=== PATIENT | male | born 1935 | race Caucasian/White ===

== ENCOUNTER 2020-02-27 10:50 | Outpatient (CLI) | payer OTHER ==
[~2020-02-27 10:50] MED LIST: CADUET 5 MG/401 TAB PO; COUMADIN2.5 MG PO; DIOVAN HCT 160-1 TAB PO; LANOXIN EL0.05 MG/ML PO
== END 2020-02-27 11:01 | disposition home or self-care (01) ==
LOC: RAD 10:50
PROVIDERS: ATTEND General Practice
DX: M54.89 Other dorsalgia (principal)

== ENCOUNTER 2020-04-07 10:10 | Outpatient (CLI) | payer OTHER | END 2020-04-07 10:20 | disposition home or self-care (01) | LOC: RAD 10:10 | DX: I70.0 Atherosclerosis of aorta (principal); I10 Essential (primary) hypertension ==

== ENCOUNTER 2021-12-14 10:53 | Outpatient (CLI) | payer OTHER | END 2021-12-14 10:59 | disposition home or self-care (01) | LOC: RAD 10:53 | PROVIDERS: ATTEND Neuromusculoskeletal Medicine & OMM | DX: M54.16 Radiculopathy, lumbar region (principal) ==

== ENCOUNTER 2022-06-11 20:32 | Emergency (ER) | payer OTHER ==
[~2022-06-11] VITALS: Ht 188 cm; Wt 94.3 kg
[2022-06-11] MEDS ORDERED: JANUMET 50-5001 EACH PO (21:25)
[2022-06-11] MEDS ORDERED: TOPROL XL50 M1 PO (21:26)
[2022-06-11] MEDS ORDERED: GABAPENTIN600 MG PO (21:27)
[2022-06-11] MEDS ORDERED: FENOFIBRATE30 MG PO (21:28)
== END 2022-06-12 03:19 | disposition home or self-care (01) ==
LOC: ER 20:32
DX: R53.83 Other fatigue (principal); E11.9 Type 2 diabetes mellitus without complications; Z79.84 Long term (current) use of oral hypoglycemic drugs; I10 Essential (primary) hypertension; K57.90 Diverticulosis of intestine, part unspecified, without perforation or abscess without bleeding; Z20.822 Contact with and (suspected) exposure to COVID-19

== ENCOUNTER 2022-06-30 10:19 | Emergency (ER) | payer OTHER ==
[~2022-06-30] VITALS: Ht 185.4 cm; Wt 94.3 kg
[~2022-06-30 10:19] MED LIST changes: +FENOFIBRATE30 MG PO; +GABAPENTIN600 MG PO; +JANUMET 50-5001 EACH PO; +TOPROL XL50 M1 PO
[2022-06-30] MEDS ORDERED: JANUMET 50-5001 EACH PO (10:39)
== END 2022-06-30 11:46 | disposition home or self-care (01) ==
LOC: ER 10:19
DX: K08.89 Other specified disorders of teeth and supporting structures (principal); I10 Essential (primary) hypertension

== ENCOUNTER 2025-04-11 08:59 | Inpatient (IN) | payer OTHER ==
[~2025-04-11] VITALS: Ht 177.8 cm; Wt 90.7 kg
[2025-04-11] MEDS ORDERED: NITROGLYCERIN IN 5 % DEXTROSE 50 MG/250 ML BOTTLE IV ONE (09:17)
[2025-04-11] MEDS ORDERED: NITROGLYCERIN IN 5 % DEXTROSE 50 MG/250 ML BOTTLE IV STA (09:18)
--- NOTE | 2025-04-11 09:19 | NUR ---
PACIENTE MASCULINO, LLEGO POR AMBULANCIA YOUR LIFE, PARAMEDICOS [address], BARRIE 1360, C/C DIFICULTAD RESPIRATORIA, LLEGO A ER A LAS 8:50 AM, SE UBICA EB CRITICO 1, SE LLAMA CLAVE PEPE, SE PREPARA PARA PROCESO DE INTUBACION.
[2025-04-11] MEDS ORDERED: SODIUM CHLORIDE 0.45 % 1,000 ML IV STA (09:22)
[2025-04-11] MEDS ORDERED: CHLORHEXIDINE GLUCONATE 15ML BRUSH KIT MM SCH (09:29)
[2025-04-11] MEDS ORDERED: POLYVINYL ALCOHOL 15 ML DROPS OP SCH (09:29)
[2025-04-11] MEDS ORDERED: FAMOTIDINE/PF 20 MG/2 ML VIAL IV PUSH STA (09:30)
[2025-04-11 09:53] LABS: URINE APPEARANCE Clear; URINE BILIRRUBIN Negative (NEGATIVE); URINE BLOOD Moderate; URINE COLOR Yellow; URINE KETONE Negative (NEGATIVE); URINE LEUKOCYTE Negative; URINE NITRATE Negative; URINE UROBILINOGEN 1.0 E.U./dl
[2025-04-11] MEDS ORDERED: CEFTRIAXONE SODIUM 2,000 MG VIAL ONE (09:53)
[2025-04-11 09:54] LABS: BASO % 0.6 % (0.1-1.2); EOS # 0.33 (0.04-0.54); EOS % 1.2 % (0.7-7.0); LYMPH # 4.91 (1.18-3.74); LYMPH % 17.3 % (19.3-53.1); MEAN PLATELET VOLUME 12.20 fl (9.4-12.4); MONO # 2.25 (0.24-0.82); MONO % 7.9 % (4.7-12.5); NEUT # 20.21 (1.56-6.13); NEUT % 71.2 % (34.0-71.1); RED CELL DISTRIBUTION WIDTH 13.9 % (11.6-14.4)
[2025-04-11 09:57] LABS: URINE BACTERIA 623.8 uL (0.0-1933); URINE CAST 6.45 uL (0.0-1.40); URINE EPITHELIAL CELLS 17.8 uL (0.0-38.8); URINE RBC 67.6 uL (0.0-20.8); URINE WBC 24.7 uL (0.0-23.2)
--- NOTE | 2025-04-11 10:00 | NUR ---
SE ASISTE A DR. ZAMAN EN PROCESO DE ENTUBACION EL MISMO INTENTA Y CHIRAG. PERSONAL DE ANESTECIA A LAS 9:02AM ENTUBA PACIENTE CON UN TUBO 7.5CM Y SE FIJA A 23CM SE CONECTA A VENTILADOR CON PARAMETROS VT 500ML, PEEP 5 , SPO2 100% Y RATE EN 16. SE ADMINISTRA 80MG DE LASIX POR ORDEN VERBAL DE DR. ZAMAN. SE INSERTA GREER # 16 SE OBSERVA 50 ML DE EGRESO URINARIO. SE REALIZE EKG Y SE PRESENTA A DR. ZAMAN. PENDIENTE A PLACA D EPECHO
[2025-04-11 10:04] LABS: URINE GLUCOSE 500 MG/DL (NEGATIVE); URINE PROTEIN 100 (NEGATIVE)
[2025-04-11 10:22] LABS: D DIMER 3.14 MG/L
[2025-04-11 10:25] LABS: ALT/SGPT 27.0 U/L (12-78); AST/SGOT 45.0 U/L (15-37); BILIRUBIN TOTAL 1.08 mg/dL (0.3-1.2); BUN CREA RATIO 15.0 (7.0-25.0); CREATININE SERUM 1.35 mg/dL (0.70-1.30); GFR 49.99; GLOBULINA 4.6 G/DL (2.4-3.5); GLUCOSE FASTING 233.0 mg/dL (65-100); OSMOLALITY SERUM 291.0 MOSM/KG (275-295)
[2025-04-11] MEDS ORDERED: CEFTRIAXONE SODIUM 2,000 MG VIAL IV ONE (10:30)
[2025-04-11 10:36] LABS: INR 4.04
[2025-04-11 11:39] LABS: COVID-19 AG NEGATIVE (NEGATIVE)
[2025-04-11] MEDS ORDERED: 0.9 % SODIUM CHLORIDE 1,000 ML IV SCH (13:00)
[2025-04-11] MEDS ORDERED: IPRATROPIUM BROMIDE 0.5 MG/2.5 ML AMPUL.NEB IH SCH (13:02)
[2025-04-11] MEDS ORDERED: LEVALBUTEROL HCL 0.63 MG/3 ML SOLUTION IH SCH (13:02)
[2025-04-11] MEDS ORDERED: LACTOBACILLUS ACIDOPHILUS 1 CAP CAP PO SCH (13:07)
[2025-04-11] MEDS ORDERED: AZITHROMYCIN 500 MG VIAL IV SCH (13:07)
[2025-04-11] MEDS ORDERED: PIPERACILLIN/TAZOBACTAM SODIUM 3.375 GM in DEXTROSE 5 % IN WATER 100 ML IV SCH (13:07)
[2025-04-11] MEDS ORDERED: ENOXAPARIN SODIUM 60 MG/0.6 ML SYRINGE SUBCUTANEO SCH (13:08)
[2025-04-11] MEDS ORDERED: PANTOPRAZOLE SODIUM 40 MG/VIAL VIAL IV SCH (13:08)
[2025-04-11] MEDS ORDERED: AMLODIPINE BESYLATE 2.5 MG TABLET PO SCH (13:10)
[2025-04-11] MEDS ORDERED: METHYLPREDNISOLONE SOD SUCC 40 MG VIAL IV SCH (13:11)
[2025-04-11] MEDS ORDERED: DEXTROSE 50 % IN WATER 0.5 G/ML DISP.SYRIN IV PRN (13:15)
[2025-04-11] MEDS ORDERED: INSULIN LISPRO 1,000 UNIT/10 ML UNITS SUBCUTANEO PRN (13:15)
[2025-04-11] MEDS ORDERED: ACETAMINOPHEN 500 MG GEL..CAP PO PRN (13:15)
[2025-04-11] MEDS ORDERED: IPRATROPIUM BROMIDE 0.5 MG/2.5 ML AMPUL.NEB IH ONE ×2 (13:22→16:15)
[2025-04-11] MEDS ORDERED: LEVALBUTEROL HCL 0.63 MG/3 ML SOLUTION IH ONE ×2 (13:22→16:15)
[2025-04-11] MEDS ORDERED: PIPERACILLIN/TAZOBACTAM SODIUM 3.375 GM VIAL IV ONE ×2 (13:23→16:55)
[2025-04-11] MEDS ORDERED: AZITHROMYCIN 500 MG VIAL IV ONE (13:23)
[2025-04-11] MEDS ORDERED: ENOXAPARIN SODIUM 60 MG/0.6 ML SYRINGE SUBCUTANEO ONE (13:23)
[2025-04-11] MEDS ORDERED: METHYLPREDNISOLONE SOD SUCC 40 MG VIAL ONE (13:23)
[2025-04-11] MEDS ORDERED: hydrALAZINE HCL 20 MG VIAL IV PRN (13:30)
[2025-04-11 14:48] VITALS: BP 130/61; O2SAT 100
[2025-04-11] MEDS ORDERED: ACETAMINOPHEN 500 MG GEL..CAP PO ONE (16:22)
[2025-04-11] MEDS ORDERED: LACTOBACILLUS ACIDOPHILUS 1 CAP CAP PO ONE (16:22)
[2025-04-11] MEDS ORDERED: GABAPENTIN 800 MG TABLET PO SCH (17:00)
[2025-04-11 19:08] VITALS: BP 162/66; O2SAT 100
[2025-04-11 20:07] VITALS: BP 103/89; O2SAT 100
[2025-04-11 23:30] VITALS: BP 130/66; O2SAT 100
[2025-04-12 04:18] VITALS: BP 166/62; O2SAT 100
[2025-04-12 05:55] LABS: URINE APPEARANCE Cloudy; URINE BILIRRUBIN Small (NEGATIVE); URINE BLOOD Large; URINE COLOR Orange; URINE KETONE Negative (NEGATIVE); URINE LEUKOCYTE Trace; URINE NITRATE Negative; URINE UROBILINOGEN 1.0 E.U./dl
[2025-04-12 05:56] LABS: URINE BACTERIA 129.5 uL (0.0-1933); URINE EPITHELIAL CELLS 13.3 uL (0.0-38.8); URINE RBC 8669.1 uL (0.0-20.8); URINE WBC 53.2 uL (0.0-23.2)
[2025-04-12 06:02] LABS: URINE CAST 0.14 uL (0.0-1.40); URINE GLUCOSE 100 MG/DL (NEGATIVE); URINE PROTEIN 100 (NEGATIVE)
[2025-04-12 06:05] LABS: BASO % 0.2 % (0.1-1.2); EOS # 0.00 (0.04-0.54); EOS % 0.0 % (0.7-7.0); LYMPH # 0.87 (1.18-3.74); LYMPH % 6.3 % (19.3-53.1); MEAN PLATELET VOLUME 12.20 fl (9.4-12.4); MONO # 0.63 (0.24-0.82); MONO % 4.6 % (4.7-12.5); NEUT # 12.27 (1.56-6.13); NEUT % 88.6 % (34.0-71.1); RED CELL DISTRIBUTION WIDTH 13.5 % (11.6-14.4)
[2025-04-12 06:30] LABS: INR 3.55
[2025-04-12 06:34] LABS: ERYTHROCYTE SEDIMENTATION RATE 62 mm/hr (0-20)
[2025-04-12 07:44] VITALS: BP 139/66; O2SAT 100
[2025-04-12 07:48] LABS: ALT/SGPT 54.0 U/L (12-78); AST/SGOT 62.0 U/L (15-37); BILIRUBIN TOTAL 0.74 mg/dL (0.3-1.2); BUN CREA RATIO 19.0 (7.0-25.0); CHOL HDL RATIO 2.4 (0-5.0); CREATININE SERUM 1.28 mg/dL (0.70-1.30); GFR 53.16; GLOBULINA 3.4 G/DL (2.4-3.5); GLUCOSE FASTING 184.0 mg/dL (65-100); HDL 46.0 mg/dl (40-60); LDL 46.0 mg/dl (0-130); OSMOLALITY SERUM 296.0 MOSM/KG (275-295); T4 FREE 1.27 NG/ML (0.76-1.46); VLDL 19.0 (0-39)
[2025-04-12 07:53] LABS: PROSTATIC SPECIFIC ANTIGEN 8.24 NG/ML (0.010-4.00); TSH 0.279 uIU/mL (0.358-3.74)
[2025-04-12] MEDS ORDERED: AZITHROMYCIN 500 MG VIAL IV ONE (08:27)
[2025-04-12] MEDS ORDERED: METOPROLOL TARTRATE 100 MG TABLET PO SCH (09:00)
[2025-04-12] MEDS ORDERED: GABAPENTIN 600 MG TABLET PO SCH (09:00)
[2025-04-12] MEDS ORDERED: ENOXAPARIN SODIUM 40 MG/0.4 ML SYRINGE SUBCUTANEO SCH (09:00)
[2025-04-12 12:08] VITALS: BP 149/71; O2SAT 98
[2025-04-12 15:00] VITALS: BP 156/72; O2SAT 100
[2025-04-12 20:00] VITALS: BP 165/74; O2SAT 99
[2025-04-12 23:33] VITALS: BP 154/65; O2SAT 99
[2025-04-13] VITALS (14 sets, daily range): BP systolic 131–174; BP diastolic 58–81; O2SAT 89–100
[2025-04-13 08:24] LABS: ALT/SGPT 76.0 U/L (12-78); AST/SGOT 68.0 U/L (15-37); BILIRUBIN TOTAL 0.66 mg/dL (0.3-1.2); BUN CREA RATIO 24.0 (7.0-25.0); CREATININE SERUM 1.15 mg/dL (0.70-1.30); GFR 60.15; GLOBULINA 3.7 G/DL (2.4-3.5); GLUCOSE FASTING 196.0 mg/dL (65-100); OSMOLALITY SERUM 294.0 MOSM/KG (275-295)
[2025-04-13 08:48] LABS: BASO % 0.2 % (0.1-1.2); EOS # 0.00 (0.04-0.54); EOS % 0.0 % (0.7-7.0); LYMPH # 1.03 (1.18-3.74); LYMPH % 6.3 % (19.3-53.1); MEAN PLATELET VOLUME 12.60 fl (9.4-12.4); MONO # 1.26 (0.24-0.82); MONO % 7.8 % (4.7-12.5); NEUT # 13.81 (1.56-6.13); NEUT % 85.0 % (34.0-71.1); RED CELL DISTRIBUTION WIDTH 13.9 % (11.6-14.4)
[2025-04-13] MEDS ORDERED: DOXYCYCLINE HYCLATE 100MG IV ONE ×2 (08:55→19:19)
[2025-04-13] MEDS ORDERED: DOXYCYCLINE HYCLATE 100MG IV SCH (09:00)
[2025-04-13] MEDS ORDERED: RACEPINEPHRINE HCL 0.5 ML AMPUL IH ONE (11:24)
[2025-04-13] MEDS ORDERED: ALBUTEROL SULFATE 3 ML/2.5 MG AMPUL.NEB IH NR (11:30)
[2025-04-13] MEDS ORDERED: NITROGLYCERIN IN 5 % DEXTROSE 50 MG/250 ML BOTTLE IV SCH (12:15)
[2025-04-13] MEDS ORDERED: NITROGLYCERIN IN 5 % DEXTROSE 250 ML IV SCH (14:00)
[2025-04-14] VITALS (12 sets, daily range): BP systolic 123–193; BP diastolic 55–80; O2SAT 98–100
[2025-04-14] MEDS ORDERED: DOXYCYCLINE HYCLATE 100MG IV ONE ×2 (07:33→20:17)
[2025-04-14] MEDS ORDERED: AMLODIPINE BESYLATE 10 MG TABLET PO STA (12:42)
[2025-04-15] VITALS (7 sets, daily range): BP systolic 150–200; BP diastolic 68–97; O2SAT 96–100
[2025-04-15] MEDS ORDERED: DOXYCYCLINE HYCLATE 100MG IV ONE (07:34)
[2025-04-15] MEDS ORDERED: AMLODIPINE BESYLATE 10 MG TABLET PO SCH (09:00)
[2025-04-15 14:50] LABS: INR 3.08
[2025-04-15] MEDS ORDERED: DOXAZOSIN MESYLATE 2 MG TABLET PO SCH (21:00)
[2025-04-15] MEDS ORDERED: DOXYCYCLINE HYCLATE 100MG EACH PO SCH ×2 (21:00)
[2025-04-16] VITALS (9 sets, daily range): BP systolic 164–183; BP diastolic 76–90; O2SAT 90–96
[2025-04-16] MEDS ORDERED: SODIUM CHLORIDE 0.45 % 1,000 ML IV SCH (16:15)
[2025-04-16] MEDS ORDERED: hydrALAZINE HCL 20 MG VIAL IV PRN (16:15)
[2025-04-16] MEDS ORDERED: DEXTROSE 5%-WATER 100ML IV.SOLN ONE (17:05)
[2025-04-16] MEDS ORDERED: WARFARIN SODIUM 2.5 MG TABLET PO SCH (21:00)
[2025-04-16] MEDS ORDERED: WARFARIN SODIUM 5 MG TABLET PO ONE (22:34)
[2025-04-17] VITALS (9 sets, daily range): BP systolic 143–167; BP diastolic 69–82; O2SAT 90–99
[2025-04-17 07:16] LABS: INR 1.93
[2025-04-17] MEDS ORDERED: INSULIN NPH HUM/REG INSULIN HM 1,000 UNIT/10 ML UNITS SUBCUTANEO SCH (09:00)
[2025-04-17] MEDS ORDERED: WARFARIN SODIUM 3 MG TABLET PO STA (15:53)
[2025-04-17] MEDS ORDERED: CLONAZEPAM 0.5 MG TABLET PO SCH (17:00)
[2025-04-17] MEDS ORDERED: WARFARIN SODIUM 5 MG TABLET PO ONE (20:19)
[2025-04-18] VITALS (9 sets, daily range): BP systolic 150–164; BP diastolic 65–85; O2SAT 90–98
[2025-04-18 06:34] LABS: INR 1.92
[2025-04-18] MEDS ORDERED: INSULIN NPH HUM/REG INSULIN HM 1,000 UNIT/10 ML UNITS SUBCUTANEO SCH (09:00)
[2025-04-18 12:37] LABS: BASO % 0.7 % (0.1-1.2); EOS # 0.84 (0.04-0.54); EOS % 8.4 % (0.7-7.0); LYMPH # 1.58 (1.18-3.74); LYMPH % 15.8 % (19.3-53.1); MEAN PLATELET VOLUME 11.30 fl (9.4-12.4); MONO # 1.22 (0.24-0.82); NEUT # 5.78 (1.56-6.13); NEUT % 57.6 % (34.0-71.1); RED CELL DISTRIBUTION WIDTH 13.2 % (11.6-14.4)
[2025-04-18 13:50] LABS: BASOPHIL MAN 1.0 %; EOSINOPHIL MAN 9.0 %; LYMPHOCYTE MAN 10.0 %; MONO % 12.2 % (4.7-12.5); MONOCYTE MAN 4.0 %; NEUTROPHILS MAN 66.0 %
[2025-04-18] MEDS ORDERED: WARFARIN SODIUM 5 MG TABLET PO STA (14:28)
[2025-04-19] VITALS (9 sets, daily range): BP systolic 129–174; BP diastolic 70–82; O2SAT 93–99
[2025-04-19 08:12] LABS: INR 3.02
[2025-04-19 08:27] LABS: ALT/SGPT 41.0 U/L (12-78); AST/SGOT 19.0 U/L (15-37); BILIRUBIN TOTAL 0.61 mg/dL (0.3-1.2); BUN CREA RATIO 29.0 (7.0-25.0); CREATININE SERUM 0.91 mg/dL (0.70-1.30); GFR 78.81; GLOBULINA 2.9 G/DL (2.4-3.5); GLUCOSE FASTING 150.0 mg/dL (65-100); OSMOLALITY SERUM 280.0 MOSM/KG (275-295)
[2025-04-20] VITALS (9 sets, daily range): BP systolic 156–159; BP diastolic 71–81; O2SAT 95–100
[2025-04-20 07:59] LABS: INR 3.85
[2025-04-20] MEDS ORDERED: METOPROLOL SUCCINATE 100 MG TAB.SR.24H PO SCH (09:00)
[2025-04-21 01:00] VITALS: O2SAT 98
[2025-04-21 03:38] VITALS: BP 146/69; O2SAT 99
[2025-04-21 05:35] VITALS: O2SAT 99
[2025-04-21 08:24] VITALS: BP 112/61
[2025-04-21 13:06] LABS: INR 2.85
[2025-04-21 13:19] VITALS: O2SAT 97
[2025-04-21] MEDS ORDERED: GABAPENTIN800 MG PO (16:21)
[2025-04-21] MEDS ORDERED: AMLODIPINE BESY10 MG PO (16:21)
[2025-04-21] MEDS ORDERED: TOPROL XL100 M1 PO (16:21)
[2025-04-21] MEDS ORDERED: DOXAZOSIN MESYLA2 MG PO (16:21)
[2025-04-21] MEDS ORDERED: WARFARIN SODIU2.5 MG PO (16:21)
[2025-04-21] MEDS ORDERED: HYDRALAZINE HCL50 MG PO (16:21)
[2025-04-21] MEDS ORDERED: CLONAZEPAM0.5 MG PO (16:21)
[2025-04-21] MEDS ORDERED: NEURONTIN600 MG PO (16:21)
[2025-04-21 16:39] VITALS: BP 133/76; O2SAT 100
== END 2025-04-21 21:04 | disposition home or self-care (01) | DRG 208 ==
LOC: ER 08:59 → ICU-2 13:14 → ICU 15:54 → MEDI 04-15 19:52
PROVIDERS: General Practice; Internal Medicine; Internal Medicine Endocrinology, Diabetes & Metabolism; Internal Medicine Infectious Disease; ADMIT Internal Medicine; ATTEND Internal Medicine
PROC: 5A1945Z Respiratory Ventilation, 24-96 Consecutive Hours (ICD-10-PCS; principal; 2025-04-11)
PROC: 4A12X4Z Monitoring of Cardiac Electrical Activity, External Approach (ICD-10-PCS; 2025-04-11)
PROC: B54DZZZ Ultrasonography of Bilateral Lower Extremity Veins (ICD-10-PCS; 2025-04-11)
PROC: 0DH67UZ Insertion of Feeding Device into Stomach, Via Natural or Artificial Opening (ICD-10-PCS; 2025-04-11)
PROC: 3E0G76Z Introduction of Nutritional Substance into Upper GI, Via Natural or Artificial Opening (ICD-10-PCS; 2025-04-11)
PROC: BB24YZZ Computerized Tomography (CT Scan) of Bilateral Lungs using Other Contrast (ICD-10-PCS; 2025-04-11)
PROC: 0BH17EZ Insertion of Endotracheal Airway into Trachea, Via Natural or Artificial Opening (ICD-10-PCS; 2025-04-11)
PROC: 0BP1XDZ Removal of Intraluminal Device from Trachea, External Approach (ICD-10-PCS; 2025-04-13)
PROC: 3E0F7GC Introduction of Other Therapeutic Substance into Respiratory Tract, Via Natural or Artificial Opening (ICD-10-PCS; 2025-04-14)
DX: J96.01 Acute respiratory failure with hypoxia (principal); J14 Pneumonia due to Hemophilus influenzae; N17.9 Acute kidney failure, unspecified; I13.0 Hypertensive heart and chronic kidney disease with heart failure and stage 1 through stage 4 chronic kidney disease, or unspecified chronic kidney disease; I50.813 Acute on chronic right heart failure; U09.9 Post COVID-19 condition, unspecified; E11.65 Type 2 diabetes mellitus with hyperglycemia; R60.0 Localized edema; I27.20 Pulmonary hypertension, unspecified; N18.9 Chronic kidney disease, unspecified; E11.40 Type 2 diabetes mellitus with diabetic neuropathy, unspecified; E11.51 Type 2 diabetes mellitus with diabetic peripheral angiopathy without gangrene; E78.5 Hyperlipidemia, unspecified; F41.9 Anxiety disorder, unspecified; Z87.891 Personal history of nicotine dependence; Z79.01 Long term (current) use of anticoagulants; Z79.84 Long term (current) use of oral hypoglycemic drugs; Z95.4 Presence of other heart-valve replacement